=== PATIENT | female | born 1945 | race Caucasian/White ===

== ENCOUNTER 2018-10-24 09:30 | Day surgery (SDC) | payer OTHER ==
[~2018-10-24] VITALS: Ht 162.6 cm; Wt 70.6 kg
[~2018-10-24 09:30] MED LIST: ASPI81CH PO; ATOR40TA PO; CBD SL; CHOL10002 PO; CLOP75 PO; COQ1050 MG PO; CRANBERRY TABL1 EACH PO; Calcium Ascorb500 MG PO; ERGO400 PO; FISH OIL 1,0001 EAC2 PO; HYDCHL12.5 PO; LISI5 PO; LIVALO4 MG PO; METO25ER PO; ONDA8 PO; Omeprazole20 M1 PO; TOPICAINE113 GM TD; VENLAFAXINE HCL75 MG PO; Xyzal5 MG PO
--- NOTE | 2018-10-24 10:58 | NUR ---
History, Chart, Medications and Allergies reviewed before start of procedure. Patient confirms NPO status and agrees with scheduled surgery. Lungs clear T/O to Auscultation. Patient States Post-Procedure ride home has been arranged. Pre-Op teaching done. Pt verbalizes understanding. Patient states colon prep results clear.
[2018-10-24] MEDS ORDERED: METO25ER PO (11:10)
[2018-10-24] MEDS ORDERED: LIVALO4 MG PO (11:10)
[2018-10-24] MEDS ORDERED: VENL75ER PO (11:11)
[2018-10-24] MEDS ORDERED: LEVOCETIRIZINE D5 MG PO (11:12)
[2018-10-24] MEDS ORDERED: Cranberry300 MG PO (11:12)
[2018-10-24] MEDS ORDERED: FISH OIL 1,0001 EAC1 PO (11:13)
[2018-10-24] MEDS ORDERED: CHOL10002 PO (11:13)
[2018-10-24] MEDS ORDERED: Co Q-10300 MG PO (11:14)
--- NOTE | 2018-10-24 11:41 | NUR ---
10/24/18 1141 Madeleine Sauceda History, Chart, Medications and Allergies reviewed before start of procedure.PATIENT DETERMINED TO BE ASA APPROPRIATE FOR PROPOFOL SEDATION PRIOR TO START OF PROCEDURE BY .MONITOR INTACT WITH CONTINUOUS PULSE OXIMETRY AND INTERMITTENT BP.3-LEAD EKG REVIEWED WITH PHYSICIAN PRIOR TO START OF PROCEDURE.O2 VIA N/C INTACT THROUGHOUT SEDATION/PROCEDURE.
--- NOTE | 2018-10-24 12:34 | NUR ---
Patient up to Ambulate independently. Gait steady. Patient States Post-Procedure ride home has been arranged. Discharged via wheelchair to private car for ride home. ALL BELONINGS RETURNED TO PATIENT.
== END 2018-10-24 22:53 | disposition home or self-care (01) ==
LOC: ORSCMMR 09:30 → ORD 10:30 → ORSCMMR 10:30
PROVIDERS: Internal Medicine Gastroenterology
PROC: 0DJD8ZZ Inspection of Lower Intestinal Tract, Via Natural or Artificial Opening Endoscopic (ICD-10-PCS; principal; 2018-10-24 10:30)
DX: Z12.11 Encounter for screening for malignant neoplasm of colon (principal); I10 Essential (primary) hypertension; E78.00 Pure hypercholesterolemia, unspecified; Z79.899 Other long term (current) drug therapy
CPT/HCPCS: J2704; J7120

== ENCOUNTER → 2018-11-21 | Outpatient (CLI) | payer OTHER ==
[~2018-11-21] MED LIST changes: +Co Q-10300 MG PO; +Cranberry300 MG PO; +FISH OIL 1,0001 EAC1 PO; +LEVOCETIRIZINE D5 MG PO; +VENL75ER PO
== END | disposition home or self-care (01) ==
LOC: LAB SHORT 15:15 → LAB EV 15:15
DX: R39.15 Urgency of urination (principal)
CPT/HCPCS: 87077; 87086; 87186

== ENCOUNTER 2022-08-04 13:39 | Day surgery (SDC) | payer OTHER ==
[~2022-08-04] VITALS: Ht 162.6 cm; Wt 85.3 kg
--- NOTE | 2022-08-04 14:29 | NUR ---
08/04/22 1429 Brittney Arana AT 1425 PLEDGET AT 1429
[2022-08-04 15:18] VITALS: BP 109/94
== END 2022-08-04 15:31 | disposition home or self-care (01) ==
LOC: ORSCSDS 13:39
PROVIDERS: Ophthalmology
PROC: 08DJ3ZZ Extraction of Right Lens, Percutaneous Approach (ICD-10-PCS; principal; 2022-08-04 15:00)
DX: H25.13 Age-related nuclear cataract, bilateral (principal); I10 Essential (primary) hypertension; I25.2 Old myocardial infarction; F32.A Depression, unspecified; Z85.3 Personal history of malignant neoplasm of breast; Z79.899 Other long term (current) drug therapy
CPT/HCPCS: J2250; J3010; J3301; J7040; V2632

== ENCOUNTER 2022-08-11 13:38 | Day surgery (SDC) | payer OTHER ==
[~2022-08-11] VITALS: Ht 162.6 cm; Wt 85.0 kg
--- NOTE | 2022-08-11 14:39 | NUR ---
08/11/22 1439 Khanh Dominguez TETRACAINE DROP PLACED IN LEFT EYE AT 1420. PLEDGET FOAM PLACED IN LEFT EYE AT 1422. PT TOLERATED WELL. CALL LIGHT IN REACH.
[2022-08-11 15:40] VITALS: BP 162/70
--- NOTE | 2022-08-11 16:05 | NUR ---
08/11/22 1605 OSBALDO HARRIS IV REMOVED AT 1543, CANULA INTACT, SITE WNL, PT TOLERATED PROCEDURE WELL.
== END 2022-08-11 15:50 | disposition home or self-care (01) ==
LOC: ORSCSDS 13:38
PROVIDERS: Ophthalmology
PROC: 08DK3ZZ Extraction of Left Lens, Percutaneous Approach (ICD-10-PCS; principal; 2022-08-11 15:00)
DX: H25.12 Age-related nuclear cataract, left eye (principal); Z96.1 Presence of intraocular lens; F32.A Depression, unspecified; E78.5 Hyperlipidemia, unspecified; I10 Essential (primary) hypertension; E03.9 Hypothyroidism, unspecified; Z79.82 Long term (current) use of aspirin; Z79.899 Other long term (current) drug therapy
CPT/HCPCS: J2250; J3010; J3301; J7040; V2632

== ENCOUNTER → 2022-11-20 | Outpatient (CLI) | payer OTHER | END | disposition home or self-care (01) | LOC: LAB 17:58 → LAB SHORT 17:58 | DX: R82.79 Other abnormal findings on microbiological examination of urine (principal) | CPT/HCPCS: 87077; 87086; 87186 ==